=== PATIENT | male | born 1990 | race Caucasian/White ===

== ENCOUNTER 2018-07-01 09:31 | Emergency (ER) | payer SELFPAY ==
[~2018-07-01] VITALS: Ht 170.2 cm; Wt 63.5 kg
[2018-07-01] MEDS ORDERED: ONDANSETRON ODT8 MG PO (14:09)
== END 2018-07-01 14:50 | disposition home or self-care (01) ==
LOC: ED 09:31
DX: K52.9 Noninfective gastroenteritis and colitis, unspecified (principal); F17.200 Nicotine dependence, unspecified, uncomplicated; Z88.6 Allergy status to analgesic agent
CPT/HCPCS: 74177; 80053; 81001; 83690; 85025; 96361; 96374; 96375; 99284; J1170; J2405; J7030; Q9967

== ENCOUNTER 2019-06-25 20:56 | Emergency (ER) | payer SELFPAY ==
[~2019-06-25] VITALS: Ht 170.2 cm; Wt 68.0 kg
--- OUTSIDE RECORDS SUMMARY | ~2019-06-25 | XMS | Clinical Summary ---
Demographics + + + | Address | [address] | | | [place] [address] | + + + | Home Phone | | + + + | Preferred Language | Unknown | + + + | Marital Status | Single | + + + | Jehovah'S Witness Affiliation | Unknown | + + + | Race | Unknown | + + + | Ethnic Group | Unknown | + + + Author + + + | Author | [facility] | | | and [place] | + + + | Organization | [facility] | | | and [place] | + + + | Address | Unknown | + + + | Phone | Unavailable | + + + Support + + + + + | Name | Relationship | Address | Phone | + + + + + | Miriam Haynes | ECON | [address] | | | | | [place] [address] | | + + + + + | Fabio Haynes | ECON | [address] | | | | | [place] [address] | | + + + + + Care Team Providers + +------+ + | Care Cleaner Furniture Name | Role | Phone | + +------+ + | Delores Gunn MD | PCP | Unavailable | + +------+ + Allergies + + + + + + | Active Allergy | Reactions | Severity | Noted | Comments | | | | | Date | | + + + + + + | Nsaids | Swelling | High | 09/03/19 | | | | | | 13 | | + + + + + + Medications + + + +---------+------+------+-------+ | Medication | Sig | Dispensed | Refills | Star | End | Statu | | | | | | t | Date | s | | | | | | Date | | | + + + +---------+------+------+-------+ | | Take 1-2 tablets by | 16 | 0 | 07/0 | | Activ | | HYDROcodone-acetamin | mouth every 6 hours | tablet | | 20 | | e | | ophen (NORCO) 5-325 | as needed for Pain. | | | 17 | | | | mg per tablet | | | | | | | + + + +---------+------+------+-------+ | tamsulosin | Take 1 capsule by | 30 | 0 | 07/0 | | Activ | | (FLOMAX) 0.4 mg CAPS | mouth Daily. | capsule | | 1/20 | | e | | | | | | 17 | | | + + + +---------+------+------+-------+ | ondansetron | Take 1 tablet by | 12 | 0 | 07/0 | | Activ | | (ZOFRAN ODT) 4 mg | mouth every 8 hours | tablet | | 1/20 | | e | | disintegrating | as needed for up to | | | 17 | | | | tablet | 12 doses. | | | | | | + + + +---------+------+------+-------+ Active Problems No known active problems Immunizations + + + + | Name | Dates Previously Given | Next Due | + + + + | TDAP, (ADOL/ADULT) | 09/03/2012 | | + + + + Social History + [...] + +---------+ + | Alcohol Use | Drinks/We | oz/Week | Comments | | | ek | | | + + +---------+ + | Yes [...] recent travel history available. | + + Last Filed Vital Signs + + + + | Vital Sign | Reading | Time Taken | + + + + | Blood Pressure | 103/70 | 02/25/2017556 PDT | + + + + | Pulse | 80 | 02/25/2017556 PDT | + + + + | Temperature | 36.1 C (97 F) | 02/25/2017417 PDT | + + + + | Respiratory Rate | 20 | 02/25/2017417 PDT | + + + + | Oxygen Saturation | 92% | 02/25/2017 0557 PDT | + + + + | Inhaled Oxygen | - | - | | Concentration | | | + + + + | Weight | 63.5 kg (140 lb) | 02/04/20171003 PDT | + + + + | Height | 170.2 cm (5' 7") | 02/04/20171003 PDT | + + + + | Body Mass Index | 21.93 | 02/04/20171003 PDT | + + + + Plan of Treatment + + + + + | Health Maintenance | Due Date | Last Done | Comments | + + + + + | Vaccine: Influenza | | | | | (#1) | 9 | | | + + + + + | Vaccine: | | 09/28/2015, 09/03/2012 | | | Dtap/Tdap/Td (3 - | 6 | | | | Td) | | | | + + + + + Results Not on filefrom Last 3 Months Advance Directives Patient has advance care planning documents on file. For more information, please contact:[facility] [place] [address]
--- OUTSIDE RECORDS SUMMARY | ~2019-06-25 | XMS | Clinical Summary ---
Demographics + + + | Address | [address] | | | [place] [address] | + + + | Home Phone | | + + + | Preferred Language | Unknown | + + + | Marital Status | Single | + + + | Nondenominational Affiliation | Unknown | + + + | Race | Unknown | + + + | Ethnic Group | Unknown | + + + Author + + + | Author | [facility] | | | and [place] | + + + | Organization | [facility] | | | and [place] | + + + | Address | Unknown | + + + | Phone | Unavailable | + + + Support + + + + + | Name | Relationship | Address | Phone | + + + + + | Miriam Haynes | ECON | [address] | | | | | [place] [address] | | + + + + + | Fabio Haynes | ECON | [address] | | | | | [place] [address] | | + + + + + Care Team Providers + +------+ + | Care Agriculture Department Chair Name | Role | Phone | + [...] documents on file. For more information, please contact:[facility] [place] [address]
[~2019-06-25 20:56] MED LIST: ONDANSETRON ODT8 MG PO
[2019-06-25] MEDS ORDERED: FLOMAX0.4 MG PO (22:25)
[2019-06-25] MEDS ORDERED: NORCO 5-325 TA1 EACH PO (22:25)
[2019-06-25] MEDS ORDERED: PROMETHAZINE HC25 M1 PO (22:25)
== END 2019-06-25 22:37 | disposition home or self-care (01) ==
LOC: ED 20:56
DX: N23 Unspecified renal colic (principal); F17.200 Nicotine dependence, unspecified, uncomplicated; Z88.6 Allergy status to analgesic agent; Z87.442 Personal history of urinary calculi
CPT/HCPCS: 81001; 96372; 99284; J1170

== ENCOUNTER 2020-02-02 16:19 | Emergency (ER) | payer SELFPAY ==
[~2020-02-02] VITALS: Ht 170.2 cm; Wt 70.3 kg
--- OUTSIDE RECORDS SUMMARY | ~2020-02-02 | XMS | Encounter Summary ---
Demographics + + + | Address | [address] | | | [place] [address] | + + + | Home Phone | | + + + | Preferred Language | Unknown | + + + | Marital Status | Single | + + + | Baptism Affiliation | Unknown | + + + | Race | Unknown | + + + | Ethnic Group | Unknown | + + + Author + + + | Author | [facility] | | | and [place] | + + + | Organization | [facility] | | | and [place] | + + + | Address | Unknown | + + + | Phone | Unavailable | + + + Support + + + + + | Name | Relationship | Address | Phone | + + + + + | Miriam Dealmes | ECON | [address] | | | | | [place] [address] | | + + + + + | Fabio Haynes | ECON | [address] | | | | | [place] [address] | | + + + + + Care Team Providers + +------+ + | Care Wind Farm Engineer Name | Role | Phone | + +------+ + | Delores Gunn MD | PCP | | + +------+ + Reason for Visit + + + | Reason | Comments | + + + | Flank Pain | | + + + | Hematuria | | + + + Encounter Details +--------+ + + + + | Date | Type | Department | Care Team | Description | +--------+ + + + + | 02/25/ | Emergency | [facility] | Soto Rios, | Renal colic on right | | 2017 | | [facility] | MD [address] | side (Primary Dx) | | | | CENTER [address] | [facility] | | | | | [place] | [place] [address] | | | | | [address] | [phone] | | | | | [phone] | | | +--------+ + + + + Social History + + + +--------+------+ | Tobacco Use | Types | Packs/Day | Years | Date | | | | | Used | | + + + +--------+------+ | Current Some Day | Cigarettes | 1 | 3 | | | Smoker | | | | | + + + +--------+------+ + +------+---+---+ | Smokeless Tobacco: | Chew | | | | Current User | | | | + +------+---+---+ + + +---------+ + | Alcohol Use | Drinks/Week | oz/Week | Comments | + + +---------+ + | Yes | | | | + + +---------+ + + + + | Sex Assigned at | Date Recorded | | | | + + + | Not on file | | + + + + + + + | Job Start Date | Occupation | Industry | + + + + | Not on file | Not on file | Not on file | + + + + + + + + | Travel History | Travel Start | Travel End | + + + + + + | No recent travel history available. | + + documented as of this encounter Last Filed Vital Signs + + + + + | Vital Sign | Reading | Time Taken | Comments | + + + + + | Blood Pressure | 103/70 | 02/25/2017 5:57 AM | | | | | PDT | | + + + + + | Pulse | 80 | 02/25/2017 5:57 AM | | | | | PDT | | + + + + + | Temperature | 36.1 C (97 F) | 02/25/2017 4:18 AM | | | | | PDT | | + + + + + | Respiratory Rate | 20 | 02/25/2017 4:18 AM | | | | | PDT | | + + + + + | Oxygen Saturation | 92% | 02/25/2017 5:57 AM | | | | | PDT | | + + + + + | Inhaled Oxygen | - | - | | | Concentration | | | | + + + + + | Weight | - | - | | + + + + + | Height | - | - | | + + + + + | Body Mass Index | - | - | | + + + + + documented in this encounter Discharge Instructions Instructions Soto Rios MD - 02/25/2017Take the medicine as prescribed Stay well-hydrated Follow-up with your primary care doctor Follow-up with urology Return immediately if worse AttachmentsThe following attachments cannot be sent through Care Everywhere.KIDNEY STONE W/ COLIC (BHUTANESE)documented in this encounter Medications at Time of Discharge + + + +---------+ + + | Medication | Sig | Dispensed | Refills | Start | End Date | | | | | | Date | | + + + +---------+ + + | | Take 1-2 tablets by | 16 | 0 | 02/26/20 | | | HYDROcodone-acetamin | mouth every 6 hours | tablet | | 17 | | | ophen (NORCO) 5-325 | as needed for Pain. | | | | | | mg per tablet | | | | | | + + + +---------+ + + | ondansetron | Take 1 tablet by | 12 | 0 | 02/26/20 | | | (ZOFRAN ODT) 4 mg | mouth every 8 hours | tablet | | 17 | | | disintegrating | as needed for up to | | | | | | tablet | 12 doses. | | | | | + + + +---------+ + + | tamsulosin | Take 1 capsule by | 30 | 0 | 02/26/20 | | | (FLOMAX) 0.4 mg CAPS | mouth Daily. | capsule | | 17 | | + + + +---------+ + + documented as of this encounter Plan of Treatment + +------+--------+ + + | Name | Type | Priori | Associated Diagnoses | Date/Time | | | | ty | | | + +------+--------+ + + | ED INFORMATION | TAM | Routin | | 02/25/2017 4:18 AM | | EXCHANGE | | e | | PDT | + +------+--------+ + + documented as of this encounter Procedures + +--------+ + + + | Procedure Name | Priori | Date/Time | Associated Diagnosis | Comments | | | ty | | | | + +--------+ + + + | XR ABDOMEN AP | STAT | 02/25/2017 | | Results for this | | | | 6:00 AM | | procedure are in the | | | | PDT | | results section. | + +--------+ + + + | URINALYSIS WITH | STAT | 02/25/2017 | | Results for this | | MICROSCOPIC WITH | | 5:17 AM | | procedure are in the | | CULTURE IF INDICATED | | PDT | | results section. | + +--------+ + + + | ED INFORMATION | Routin | 02/25/2017 | | | | EXCHANGE | e | 4:18 AM | | | | | | PDT | | | + +--------+ + + + +---+--------+ | | | | | Proced | | | ure | | | Note - | | | Tonny, | | | Lab In | | | | | | Hlseve | | | n - | | | | | | 2016 | | | 4:19 | | | AM PDT | | | | | | Format | | | ting | | | of | | | this | | | note | | | might | | | be | | | differ | | | ent | | | from | | | the | | | origin | | | al.TONNY | | | E?NOTI | | | FICATI | | | ON?/ | | | | | | 7 | | | 04:15? | | | ANAYA, | | | | | | GERONIMO | | | ?MRN: | | | [id number] | | | [id number] | | | his | | | patien | | | t has | | | regist | | | ered | | | at the | | | | | | Provid | | | ence | | | [facility] | | l | | | Center | | | | | | Emerge | | | ncy | | | Depart | | | ment | | | For | | | more | | | inform | | | ation | | | visit: | | | | | | https: | | | //secu | | | re.[email or web address] | | | ecarep | | | [email or web address] | | | m/corey | | | ent/43 | | | [id number] | | | -eab5- | | | [phone] | | | 48c-75 | | | [id number] | | | [id number] | | | ED | | | Care | | | Guidel | | | inesTh | | | ere | | | are | | | curren | | | tly no | | | ED | | | Care | | | Guidel | | | meir | | | in | | | TAM | | | for | | | this | | | patien | | | t. | | | Please | | | check | | | your | | | facili | | | ty's | | | medica | | | l | | | record | | | s | | | system | | | .Recen | | | t | | | Emerge | | | ncy | | | Depart | | | ment | | | Visit | | | Summar | | | yAdmit | | | Date | | | Facili | | | ty | | | City | | | State | | | Type | | | Major | | | Type | | | Diagno | | | ses or | | | Chief | | | | | | Compla | | | int | | | [place] 1, | | | 2017 | | | Provid | | | ence | | | [facility] | | [place] | | | [place] | | | Emerge | | | ncy | | | Emerge | | | ncy | | | Flank | | | Pain | | | Bao | | | 10, | | | 2017 | | | Provid | | | ence | | | [facility] | [facility] | | | [place] | | | [place] | | | Emerge | | | ncy | | | Emerge | | | ncy | | | | | | Possib | | | le | | | Kidney | | | Stone | | | | | | Unspec | | | ified | | | renal | | | colic | | | [place] | | | 1, | | | 2017 | | | Provid | | | ence | | | [facility] | [facility] | | [place] | | | [place] | | | Emerge | | | ncy | | | Emerge | | | ncy | | | | | | Abdomi | | | nal | | | Pain | | | Left | | | lower | | | | | | quadra | | | nt | | | pain | | | May | | | 23, | | | 2017 | | | Provid | | | ence | | | [facility] | [facility] | | [place] | | | [place] | | | Emerge | | | ncy | | | Emerge | | | ncy | | | Flank | | | Pain | | | | | | Unspec | | | ified | | | renal | | | colic | | | E.D. | | | Visit | | | Count | | | (12 | | | mo.)Fa | | | cility | | | | | | Visits | | | Low | | | Acuity | | | | | | Provid | | | ence | | | St. | | | [facility] | | | Medica | | | l | | | Center | | | 4 0 | | | Total | | | 4 0 | | | Note: | | | Visits | | | | | | indica | | | te | | | total | | | known | | | visits | | | . | | | Medica | | | id Low | | | | | | Acuity | | | Dx | | | are | | | the | | | number | | | of | | | primar | | | y | | | diagno | | | ses on | | | the | | | Medica | | | id's | | | Low | | | Acuity | | | dx | | | list. | | | | | | Recent | | | | | | Inpati | | | ent | | | Visit | | | Summar | | | yNo | | | record | | | ed | | | inpati | | | ent | | | visits | | | . | | | [place] | | | gton | | | PDMP | | | Report | | | PDMP | | | report | | | does | | | not | | | meet | | | criter | | | ia.Car | | | e | | | Provid | | | ersEDI | | | E has | | | no | | | care | | | provid | | | ers on | | | | | | record | | | at | | | this | | | time. | | | Criter | | | ia met | | | 4 | | | visits | | | in | | | 60Know | | | n | | | Aliase | | | sNo | | | known | | | aliase | | | s. The | | | above | | | | | | inform | | | ation | | | is | | | provid | | | ed for | | | the | | | sole | | | purpos | | | e of | | | patien | | | t | | | treatm | | | ent. | | | Use of | | | this | | | inform | | | ation | | | beyond | | | the | | | terms | | | of | | | Data | | | Sharin | | | g | | | Memora | | | ndum | | | of | | | Unders | | | tandin | | | g and | | | Licens | | | e | | | Agreem | | | ent is | | | | | | prohib | | | ited. | | | In | | | certai | | | n | | | cases | | | not | | | all | | | visits | | | may | | | be | | | repres | | | ented. | | | | | | Consul | | | t the | | | aforem | | | ention | | | ed | | | facili | | | ties | | | for | | | additi | | | onal | | | inform | | | ation. | | | ? | | | 2017 | | | Collec | | | tive | | | Medica | | | l | | | Techno | | | logies | | | , [employer] | | | - | | | [place] | | | [place] | | | [place], | | | [place] - | | | [email or web address] | | | ollect | | | ivemed | | | icalte | | | [email or web address] | | | | +---+--------+ documented in this encounter Results XR Abdomen AP (02/25/2017 6:00 AM PDT) + + | Specimen | + + | | + + + + + | Narrative | Performed At | + + + | EXAM:XR ABDOMEN 1 VW CLINICAL HISTORY: right flank pain | [facility] | | COMPARISON: CT abdomen and pelvis dated February 04, 2017. FINDINGS: | | | The calcifications previously seen in the distal right ureter are no | | | longer visible. There is a phlebolith in the pelvis, on the right | | | side. No additional radiopaque nephrolithiasis. No dilated loops | | | of bowel. Scattered stool and gas. The osseous structures are | | | unremarkable. IMPRESSION - Interval passage of the distal | | | ureterolith on the right. Dictated and Signed by: Noman Mcmillan, | | | Electronically signed: 02/25/2017 11:49 AM | | + + + + + | Procedure Note | + + | Tonny, Rad Results In - 02/25/2017 11:52 AM PDT EXAM:XR ABDOMEN 1 VW | | | | CLINICAL HISTORY: right flank pain | | | | COMPARISON: CT abdomen and pelvis dated February 04, 2017. | | | | FINDINGS: The calcifications previously seen in the distal right ureter are no | | longer visible. There is a phlebolith in the pelvis, on the right side. No | | additional radiopaque nephrolithiasis. No dilated loops of bowel. Scattered | | stool and gas. The osseous structures are unremarkable. | | | | IMPRESSION - | | | | Interval passage of the distal ureterolith on the right. | | | | Dictated and Signed by: Noman Mcmillan MD | | Electronically signed: 02/25/2017 11:49 AM | + + + +---------+ + + | Performing | Address | City/State/Zipcode | Phone Number | | Organization | | | | + +---------+ + + | [facility] | | | | + +---------+ + + Urinalysis with Microscopic with Culture if Indicated (02/25/2017 5:17 AM PDT) + + + + + + | Component | Value | Ref Range | Performed | Pathologist | | | | | At | Signature | + + + + + + | Color, | Straw | Light Yellow, | [facility] | | | Urine | | Yellow, Straw | [facility] | | | | | | [facility] | | | | | | C[facility] - | | | | | | LABORATORY | | + + + + + + | Clarity | Clear | Clear | [facility] | | | | | | [facility] | | | | | | MED[facility] | | | | | | CENTER - | | | | | | LABORATORY | | + + + + + + | pH, Urine | 6.0 | 5.0 - 8.0 | [facility] | | | | | | [facility] | | | | | | MED[facility] | | | | | | CENTER - | | | | | | LABORATORY | | + + + + + + | Specific | 1.003 | 1.001 - 1.030 | [facility] | | | [place], | | | [facility] | | | Urine | | | MEDICAL | | | | | | CENTER - | | | | | | LABORATORY | | + + + + + + | Protein, | Negative | Negative | [facility] | | | Urine | | | [facility] | | | | | | MEDICAL | | | | | | CENTER - | | | | | | LABORATORY | | + + + + + + | Blood, | Moderate (A) | Negative | [facility] | | | Urine | | | [facility] | | | | | | MEDICAL | | | | | | CENTER - | | | | | | LABORATORY | | + + + + + + | Glucose, | Negative | Negative | [facility] | | | Urine | | | [facility] | | | | | | MEDICAL | | | | | | CENTER - | | | | | | LABORATORY | | + + + + + + | Ketones, | Negative | Negative | [facility] | | | Urine | | | [facility] | | | | | | MEDICAL | | | | | | CENTER - | | | | | | LABORATORY | | + + + + + + | Bilirubin, | Negative | Negative | [facility] | | | Urine | | | [facility] | | | | | | MEDICAL | | | | | | CENTER - | | | | | | LABORATORY | | + + + + + + | Nitrite, | Negative | Negative | [facility] | | | Urine | | | [facility] | | | | | | MEDICAL | | | | | | CENTER - | | | | | | LABORATORY | | + + + + + + | Leukocyte | Negative | Negative | [facility] | | | Esterase, | | | [facility] | | | Urine | | | MEDICAL | | | | | | CENTER - | | | | | | LABORATORY | | + + + + + + | Urobilinoge | Negative | 0.2 mg/dL, 1.0 | [facility] | | | n, Urine | | mg/dL, Negative | [facility] | | | | | | MEDICAL | | | | | | CENTER - | | | | | | LABORATORY | | + + + + + + | White Blood | 0-2 | 0 - 2 /HPF | [facility] | | | Cells, | | | [facility] | | | Urine | | | MEDICAL | | | | | | CENTER - | | | | | | LABORATORY | | + + + + + + | Red Blood | 0-2 | 0 - 2 /HPF | [facility] | | | Cells, | | | [facility] | | | Urine | | | MEDICAL | | | | | | CENTER - | | | | | | LABORATORY | | + + + + + + | Squamous | 0-2 | 0 - 2 /LPF | [facility] | | | Epithelial | | | [facility] | | | Cells, | | | MEDICAL | | | Urine | | | CENTER - | | | | | | LABORATORY | | + + + + + + | Bacteria, | Negative | Negative /HPF | [facility] | | | Urine | | | [facility] | | | | | | MEDICAL | | | | | | CENTER - | | | | | | LABORATORY | | + + + + + + | Urine | Urine Culture Not | | [facility] | | | Comment | Indicated | | [facility] | | | | | | MEDICAL | | | | | | CENTER - | | | | | | LABORATORY | | + + + + + + + + | Specimen | + + | Urine - Urine | | specimen obtained by | | clean catch | | procedure (specimen) | + + + + + + + | Performing | Address | City/State/Zipcode | Phone Number | | Organization | | | | + + + + + | [facility] | [address] | [place] | [phone] | | [facility] | | [address] | | | - LABORATORY | | | | + + + + + documented in this encounter Visit Diagnoses + + | Diagnosis | + + | Renal colic on right side - Primary Renal colic | + + documented in this encounter Administered Medications + + + + +------+------+ | Medication Order | MAR | Action | Dose | Rate | Site | | | Action | Date | | | | + + + + +------+------+ | HYDROcodone-acetaminophen | Dispense | 02/26/20 | 1 tablet | | | | (NORCO) 5-325 mg per tablet (ER | to Home | 17 6:12 | | | | | Prepack) 1-2 tablet 1-2 tablet, | | AM PDT | | | | | Oral, ONCE, 02/25/17 at 0610, | | | | | | | For 1 dose, 1-2 tablets every 6 | | | | | | | hours prn pain, | | | | | | + + + + +------+------+ +---+---+ | | | +---+---+ + +-------+ +------+---+---+ | HYDROmorphone (DILAUDID) 1 | Given | 02/26/20 | 1 mg | | | | mg/mL injection 1 mg 1 mg, | | 17 4:49 | | | | | Intravenous, ONCE, 02/25/17 at | | AM PDT | | | | | 0440, For 1 dose | | | | | | + +-------+ +------+---+---+ +---+---+ | | | +---+---+ + +-------+ +------+---+---+ | HYDROmorphone (DILAUDID) 1 | Given | 02/26/20 | 1 mg | | | | mg/mL injection 1 mg 1 mg, | | 17 5:29 | | | | | Intravenous, ONCE, 02/25/17 at | | AM PDT | | | | | 0525, For 1 dose | | | | | | + +-------+ +------+---+---+ +---+---+ | | | +---+---+ + +-------+ +------+---+---+ | ondansetron (ZOFRAN) injection | Given | 02/26/20 | 4 mg | | | | 4 mg 4 mg, Intravenous, ONCE, | | 17 4:49 | | | | | 02/25/17 at 0440, For 1 dose | | AM PDT | | | | + +-------+ +------+---+---+ +---+---+ | | | +---+---+ + +---------+ +---------+-------+---+ | sodium chloride 0.9% (NS) bolus | New Bag | 02/26/20 | 500 mLs | 500 | | | 500 mL 500 mL, Intravenous, | | 17 4:49 | | mL/hr | | | Administer over 1 Hours, ONCE, | | AM PDT | | | | | 02/25/17 at 0440, For 1 dose | | | | | | + +---------+ +---------+-------+---+ +---+---+ | | | +---+---+ documented in this encounter"
--- OUTSIDE RECORDS SUMMARY | ~2020-02-02 | XMS | Encounter Summary ---
Demographics + + + | Address | [address] | | | [place] [address] | + + + | Home Phone | | + + + | Preferred Language | Unknown | + + + | Marital Status | Single | + + + | Orthodox Affiliation | Unknown | + + + | Race | Unknown | + + + | Ethnic Group | Unknown | + + + Author + + + | Author | [facility] | | | and [place] | + + + | Organization | [facility] | | | and [place] | + + + | Address | Unknown | + + + | Phone | Unavailable | + + + Support + + + + + | Name | Relationship | Address | Phone | + + + + + | Miriam Dealmes | ECON | [address] | | | | | [place] [address] | | + + + + + | Fabio Haynes | ECON | [address] | | | | | [place] [address] | | + + + + + Care Team Providers + +------+ + | Care Sports Psychologist Name | Role | Phone | + +------+ + | No, Physician | PCP | Unavailable | + +------+ + Encounter Details +--------+ + + + + | Date | Type | Department | Care Team | Description | +--------+ + + + + | 09/25/ | Hospital | [facility] | Kevin Edison | | | 2012 - | Encounter | [facility] | J, DO [address] | | | | | [address] [place] | [place], [place] | | | 09/27/ | | [place] [address] | [address] | | | 2012 | | [phone] | [phone] | | | | | | | | +--------+ + + + + Social History + + + +--------+------+ | Tobacco Use | Types | Packs/Day | Years | Date | | | | | Used | | + + + +--------+------+ | Current Some Day | Cigarettes | 1 | 3 | | | Smoker | | | | | + + + +--------+------+ + +---+---+---+ | Smokeless Tobacco: | | | | | Current User | | | | + +---+---+---+ + + +---------+ + | Alcohol Use | Drinks/Week | oz/Week | Comments | + + +---------+ + | Not Asked | | | | + + +---------+ [...] as of this encounter Plan of Treatment Not on filedocumented as of this encounter Visit Diagnoses Not on filedocumented in this encounter"
--- OUTSIDE RECORDS SUMMARY | ~2020-02-02 | XMS | Encounter Summary ---
Demographics + + + | Address | [address] | | | [place] [address] | + + + | Home Phone | | + + + | Preferred Language | Unknown | + + + | Marital Status | Single | + + + | Hinduism Affiliation | Unknown | + + + | Race | Unknown | + + + | Ethnic Group | Unknown | + + + Author + + + | Author | [facility] | | | and [place] | + + + | Organization | [facility] | | | and [place] | + + + | Address | Unknown | + + + | Phone | Unavailable | + + + Support + + + + + | Name | Relationship | Address | Phone | + + + + + | Miriam Dealmes | ECON | [address] | | | | | [place] [address] | | + + + + + | Fabio Haynes | [place] | [address] | | | | | [place] [address] | | + + + + + Care Team Providers + +------+ + | Care Care Advocate Name | Role | Phone | + +------+ + | Delores Gunn MD | PCP | | + +------+ + Reason for Visit + + + | Reason | Comments | + + + | Abdominal Pain | | + + + Encounter Details +--------+ + + + + | Date | Type | Department | Care Team | Description | +--------+ + + + + | 01/26/ | Emergency | [facility] | [place] | Left lower quadrant | | 2017 | | [facility] | MD [address] | pain (Primary Dx) | | | | CENTER [address] | [facility] | | | | | [place] | [place] [address] | | | | | [address] | [phone] | | | | | [phone] | | | +--------+ + + + [...] + + + | Blood Pressure | 117/77 | 01/26/2017 7:57 PM | | | | | PDT | | + + + + + | Pulse | 72 | 01/26/2017 7:57 PM | | | | | PDT | | + + + + + | Temperature | 36.6 C (97.8 F) | 01/26/2017 5:24 PM | | | | | PDT | | + + + + + | Respiratory Rate | 22 | 01/26/2017 5:24 PM | | | | | PDT | | + + + + + | Oxygen Saturation | 95% | 01/26/2017 7:57 PM | | | | | PDT | | + + + + + | Inhaled Oxygen | - | - | | | Concentration | | | | + + + + + | Weight | 63.5 kg (140 lb) | 01/26/2017 5:24 PM | | | | | PDT | | + + + + + | Height | 170.2 cm (5' 7") | 01/26/2017 5:24 PM | | | | | PDT | | + + + + + | Body Mass Index | 21.93 | 01/26/2017 5:24 PM | | | | | PDT | | + + + + + documented in this encounter Discharge Instructions Louise Allison RN - 01/26/2017Take hydrocodone if needed for pain Drink plenty of water Return here if worsening or no better in the next 12-24 hours documented in this encounter Medications at Time of Discharge + + + +---------+ + + | Medication | Sig | Dispensed | Refills | Start | End Date | | | | | | Date | | + + + +---------+ + + | | Take 1-2 tablets by | 20 | 0 | 01/27/20 | | | HYDROcodone-acetamin | mouth every 4 hours | tablet | | 17 | 7 | | ophen (NORCO) 5-325 | as needed for Pain. | | | | | | mg per tablet | | | | | | + + + +---------+ + + documented as of this encounter Plan of Treatment Not on filedocumented as of this encounter Procedures + +--------+ + + + | Procedure Name | Priori | Date/Time | Associated Diagnosis | Comments | | | ty | | | | + +--------+ + + + | CT RENAL STONE WO | STAT | 01/26/2017 | | Results for this | | CONTRAST | | 6:56 PM | | procedure are in the | | | | PDT | | results section. | + +--------+ + + + | CBC WITH | STAT | 01/26/2017 | | Results for this | | DIFFERENTIAL | | 6:43 PM | | procedure are in the | | | | PDT | | results section. | + +--------+ + + + | LIPASE | STAT | 01/26/2017 | | Results for this | | | | 6:43 PM | | procedure are in the | | | | PDT | | results section. | + +--------+ + + + | COMPREHENSIVE | STAT | 01/26/2017 | | Results for this | | METABOLIC PANEL | | 6:43 PM | | procedure are in the | | | | PDT | | results section. | + +--------+ + + + | POCT URINALYSIS, | STAT | 01/26/2017 | | Results for this | | AUTO WITH CONF | | 6:02 PM | | procedure are in the | | | | PDT | | results section. | + +--------+ + + + documented in this encounter Results CT Renal Stone Wo Contrast (01/26/2017 6:56 PM PDT) + + | Specimen | + + | | + + + + + | Narrative | Performed At | + + + | CT RENAL STONE WO CONTRAST 01/26/2017 6:53 PM HISTORY: ABDOMINAL | [facility] | | PAIN. COMPARISON: None. PROTOCOL: Axial images of the abdomen | | | and pelvis were obtained. Coronal and sagittal reformations were | | | acquired. FINDINGS: Chest base is normal. Imaged liver | | | demonstrates normal parenchyma. The gallbladder is normal. Biliary | | | ducts are unremarkable. Imaged spleen is unremarkable. The | | | pancreas demonstrates normal parenchyma and a normal pancreatic duct. | | | Adrenal glands are normal. The bilateral kidneys and visualized | | | ureters are normal. The distal ureters are not well seen. | | | Stomach, small bowel, and terminal ileum are normal. The appendix is | | | not definitively identified. Colon is unremarkable. Aorta is | | | nonaneurysmal. The iliac arteries are normal. There is no significant | | | abnormality in the portal veins, mesenteric veins, or systemic veins. | | | There are 3 calcifications in the right pelvis that have the | | | appearance of phleboliths. No enlarged lymph nodes are visualized | | | within the omentum or retroperitoneum. There is no evidence for | | | ascites or free air. Bladder is normal. Prostate and seminal | | | vesicles are normal. Body wall soft tissue structures are normal. | | | There are no acute osseous abnormalities. IMPRESSION - No acute | | | findings. There are 3 calcifications in the right pelvis that have the | | | appearance of phleboliths. Although the right distal ureter is not | | | well seen, these are unlikely to be obstructing stones as there is no | | | significant right hydronephrosis. Dictated and Signed by: Satnam | | | MD Isidro Electronically signed: 01/26/2017 7:35 PM | | + + + + + | Procedure Note | + + | Lupillo, Rad Results In - 01/26/2017 7:[address] RENAL STONE WO CONTRAST 01/26/2017 | | 6:53 PMHISTORY: ABDOMINAL PAIN.COMPARISON: None.PROTOCOL: Axial images of the abdomen | | and pelvis were obtained. Coronal andsagittal reformations were acquired.FINDINGS:Chest | | base is normal.Imaged liver demonstrates normal parenchyma. The gallbladder is normal. | | Biliaryducts are unremarkable.Imaged spleen is unremarkable. The pancreas demonstrates | | normal parenchyma and anormal pancreatic duct. Adrenal glands are normal.The bilateral | | kidneys and visualized ureters are normal. The distal ureters arenot well seen.Stomach, | | small bowel, and terminal ileum are normal. The appendix is notdefinitively identified. | | Colon is unremarkable.Aorta is nonaneurysmal. The iliac arteries are normal. There is no | | significantabnormality in the portal veins, mesenteric veins, or systemic veins. There | | are3 calcifications in the right pelvis that have the appearance of phleboliths.No | | enlarged lymph nodes are visualized within the omentum or retroperitoneum.There is no | | evidence for ascites or free air.Bladder is normal.Prostate and seminal vesicles are | | normal.Body wall soft tissue structures are normal. There are no acute | | osseousabnormalities.IMPRESSION -No acute findings. There are 3 calcifications in the | | right pelvis that have theappearance of phleboliths. Although the right distal ureter is | | not well seen,these are unlikely to be obstructing stones as there is no significant | | righthydronephrosis.Dictated and Signed by: Satnam Felix MD Electronically signed: | | 01/26/2017 7:35 PM | |not well seen. | | | |Stomach, small bowel, and terminal ileum are normal. The appendix is not | |definitively identified. Colon is unremarkable. | | | |Aorta is nonaneurysmal. The iliac arteries are normal. There is no significant | |abnormality in the portal veins, mesenteric veins, or systemic veins. There are | |3 calcifications in the right pelvis that have the appearance of phleboliths. | | | |No enlarged lymph nodes are visualized within the omentum or retroperitoneum. | | | |There is no evidence for ascites or free air. | | | |Bladder is normal. | | | |Prostate and seminal vesicles are normal. | | | |Body wall soft tissue structures are normal. There are no acute osseous | |abnormalities. | | | |IMPRESSION - | |No acute findings. There are 3 calcifications in the right pelvis that have the | |appearance of phleboliths. Although the right distal ureter is not well seen, | |these are unlikely to be obstructing stones as there is no significant right | |hydronephrosis. | | | |Dictated and Signed by: Satnam Felix MD | | Electronically signed: 01/26/2017 7:35 PM | + + + +---------+ + + | Performing | Address | City/State/Zipcode | Phone Number | | Organization | | | | + +---------+ + + | [facility] | | | | + +---------+ + + Lipase (01/26/2017 6:43 PM PDT) + +-------+ + + + | Component | Value | Ref Range | Performed | Pathologist | | | | | At | Signature | + +-------+ + + + | Lipase | 19 | 0 - 60 U/L | [facility] | | | | | | [facility] | | | | | | [facility] | | | | | | C[facility] - | | | | | | LABORATORY | | + +-------+ + + + + + | Specimen | + + | Blood | + + + + + + + | Performing | Address | City/State/Zipcode | Phone Number | | Organization | | | | + + + + + | [facility] | [address] | [place] | [phone] | | [facility] | | [address] | | | - LABORATORY | | | | + + + + + Comprehensive Metabolic Panel (01/26/2017 6:43 PM PDT) + + + + + + | Component | Value | Ref Range | Performed | Pathologist | | | | | At | Signature | + + + + + + | Na | 141 | 136 - 149 | [facility] | | | | | mmol/L | [facility] | | | | | | MEDICAL | | | | | | CENTER - | | | | | | LABORATORY | | + + + + + + | K | 3.8 | 3.5 - 5.1 | [facility] | | | | | mmol/L | [facility] | | | | | | MEDICAL | | | | | | CENTER - | | | | | | LABORATORY | | + + + + + + | Cl | 102 | 98 - 109 mmol/L | [facility] | | | | | | [facility] | | | | | | MEDICAL | | | | | | CENTER - | | | | | | LABORATORY | | + + + + + + | CO2 | 28 | 24 - 31 mmol/L | [facility] | | | | | | [facility] | | | | | | [facility] | | | | | | CENTER - | | | | | | LABORATORY | | + + + + + + | Anion Gap | 11 | 3 - 16 mmol/L | [facility] | | | | | | [facility] | | | | | | MEDICAL | | | | | | CENTER - | | | | | | LABORATORY | | + + + + + + | Glucose | 136 (H) | 70 - 109 mg/dL | [facility] | | | | | | [facility] | | | | | | [facility] | | | | | | CENTER - | | | | | | LABORATORY | | + + + + + + | BUN | 8 | 7 - 18 mg/dL | [facility] | | | | | | [facility] | | | | | | [facility] | | | | | | CENTER - | | | | | | LABORATORY | | + + + + + + | Creatinine | 0.92 | 0.60 - 1.30 | [facility] | | | | | mg/dL | [facility] | | | | | | MEDICAL | | | | | | CENTER - | | | | | | LABORATORY | | + + + + + + | eGFR if not | >60Comment: GLOMERULAR | >=60 | [facility] | | | | FILTRATION | mL/min/1.73m2 | [facility] | | | [place] | RATE,ESTIMATED | | MEDICAL | | | | mL/min/1.67w6Mpjn than | | CENTER - | | | | 60 Chronic kidney | | LABORATORY | | | | disease,if found over a | | | | | | 3-month period.Less than | | | | | | 15 Kidney failureFor | | | | | | | | | | | | Americans,multiply the | | | | | | calculated GFR by 1.21. | | | | | | | | | | + + + + + + | Calcium | 9.8 | 8.3 - 10.5 | [facility] | | | | | mg/dL | [facility] | | | | | | MEDICAL | | | | | | CENTER - | | | | | | LABORATORY | | + + + + + + | Albumin | 4.5 | 3.2 - 5.0 g/dL | [facility] | | | | | | [facility] | | | | | | MEDICAL | | | | | | CENTER - | | | | | | LABORATORY | | + + + + + + | Bilirubin | 1.1 | 0.1 - 1.5 mg/dL | [facility] | | | Total | | | [facility] | | | | | | MEDICAL | | | | | | CENTER - | | | | | | LABORATORY | | + + + + + + | Total | 7.4 | 6.0 - 7.8 g/dL | [facility] | | | Protein | | | [facility] | | | | | | MEDICAL | | | | | | CENTER - | | | | | | LABORATORY | | + + + + + + | AST | 33 | 10 - 42 U/L | [facility] | | | | | | [facility] | | | | | | MEDICAL | | | | | | CENTER - | | | | | | LABORATORY | | + + + + + + | ALT | 63 (H) | 6 - 45 U/L | [facility] | | | | | | [facility] | | | | | | MEDICAL | | | | | | CENTER - | | | | | | LABORATORY | | + + + + + + | Alkaline | 76 | 40 - 110 U/L | [facility] | | | Phosphatase | | | [facility] | | | | | | MEDICAL | | | | | | CENTER - | | | | | | LABORATORY | | + + + + + + | Globulin | 2.9 | 2.1 - 3.8 g/dL | [facility] | | | | | | [facility] | | | | | | MEDICAL | | | | | | CENTER - | | | | | | LABORATORY | | + + + + + + | Albumin/Kyra | 1.6 | 0.8 - 2.0 | [facility] | | | bulin Ratio | | | [facility] | | | | | | MEDICAL | | | | | | CENTER - | | | | | | LABORATORY | | + + + + + + | BUN/Creatin | 8.7 | | [facility] | | | ine Ratio | | | [facility] | | | | | | MEDICAL | | | | | | CENTER - | | | | | | LABORATORY | | + + + + + + + + | Specimen | + + | Blood | + + + + + + + | Performing | Address | City/State/Zipcode | Phone Number | | Organization | | | | + + + + + | [facility] | [address] | [place] | [phone] | | [facility] | | [address] | | | - LABORATORY | | | | + + + + + CBC with Differential (01/26/2017 6:43 PM PDT) + + + + + + | Component | Value | Ref Range | Performed | Pathologist | | | | | At | Signature | + + + + + + | WBC | 17.7 (H) | 4.0 - 11.0 K/uL | [facility] | | | | | | [facility] | | | | | | [facility] | | | | | | CENTER - | | | | | | LABORATORY | | + + + + + + | RBC | 5.47 | 4.30 - 5.70 | [facility] | | | | | M/uL | [facility] | | | | | | MEDICAL | | | | | | CENTER - | | | | | | LABORATORY | | + + + + + + | Hemoglobin | 16.9 | 13.5 - 18.0 | [facility] | | | | | g/dL | [facility] | | | | | | MEDICAL | | | | | | CENTER - | | | | | | LABORATORY | | + + + + + + | Hematocrit | 48.1 | 40.0 - 51.0 % | [facility] | | | | | | [facility] | | | | | | MEDICAL | | | | | | CENTER - | | | | | | LABORATORY | | + + + + + + | MCV | 88.1 | 83.0 - 101.0 fL | [facility] | | | | | | [facility] | | | | | | MEDICAL | | | | | | CENTER - | | | | | | LABORATORY | | + + + + + + | MCH | 30.9 | 28.0 - 35.0 pg | [facility] | | | | | | [facility] | | | | | | [facility]ICAL | | | | | | CENTER - | | | | | | LABORATORY | | + + + + + + | MCHC | 35.1 | 32.0 - 36.0 | [facility] | | | | | g/dL | [facility] | | | | | | MEDICAL | | | | | | CENTER - | | | | | | LABORATORY | | + + + + + + | RDW-CV | 12.1 | <15.0 % | [facility] | | | | | | [facility] | | | | | | MEDICAL | | | | | | CENTER - | | | | | | LABORATORY | | + + + + + + | Platelet | 274 | 140 - 440 K/uL | [facility] | | | Count | | | [facility] | | | | | | MEDICAL | | | | | | CENTER - | | | | | | LABORATORY | | + + + + + + | MPV | 7.5 | fL | [facility] | | | | | | [facility] | | | | | | MEDICAL | | | | | | CENTER - | | | | | | LABORATORY | | + + + + + + | % | 81.2 | 45.0 - 82.0 % | [facility] | | | Neutrophils | | | [facility] | | | | | | MEDICAL | | | | | | CENTER - | | | | | | LABORATORY | | + + + + + + | % | 8.9 (L) | 20.0 - 45.0 % | [facility] | | | Lymphocytes | | | [facility] | | | | | | MEDICAL | | | | | | CENTER - | | | | | | LABORATORY | | + + + + + + | % Monocytes | 9.0 | 4.0 - 12.0 % | [facility] | | | | | | [facility] | | | | | | MEDICAL | | | | | | CENTER - | | | | | | LABORATORY | | + + + + + + | % | 0.7 | 0.0 - 5.0 % | [facility] | | | Eosinophils | | | [facility] | | | | | | MEDICAL | | | | | | CENTER - | | | | | | LABORATORY | | + + + + + + | % Basophils | 0.2 | 0.0 - 1.0 % | [facility] | | | | | | [facility] | | | | | | MEDICAL | | | | | | CENTER - | | | | | | LABORATORY | | + + + + + + | Absolute | 14.40 (H) | 1.80 - 8.50 | [facility] | | | Neutrophils | | K/uL | [facility] | | | | | | MEDICAL | | | | | | CENTER - | | | | | | LABORATORY | | + + + + + + | Absolute | 1.60 | 0.60 - 3.20 | [facility] | | | Lymphocytes | | K/uL | [facility] | | | | | | MEDICAL | | | | | | CENTER - | | | | | | LABORATORY | | + + + + + + | Absolute | 1.60 (H) | 0.00 - 1.00 | [facility] | | | Monocytes | | K/uL | [facility] | | | | | | MEDICAL | | | | | | CENTER - | | | | | | LABORATORY | | + + + + + + | Absolute | 0.10 | 0.00 - 0.40 | [facility] | | | Eosinophils | | K/uL | [facility] | | | | | | MEDICAL | | | | | | CENTER - | | | | | | LABORATORY | | + + + + + + | Absolute | 0.00 | 0.00 - 0.10 | [facility] | | | Basophils | | K/uL | [facility] | | | | | | MEDICAL | | | | | | CENTER - | | | | | | LABORATORY | | + + + + + + + + | Specimen | + + | Blood | + + + + + + + | Performing | Address | City/State/Zipcode | Phone Number | | Organization | | | | + + + + + | [facility] | [address] | [place] | [phone] | | [facility] | | [address] | | | - LABORATORY | | | | + + + + + POCT Urinalysis Dipstick Automated (01/26/2017 6:02 PM PDT) + + + + + + | Component | Value | Ref Range | Performed | Pathologist | | | | | At | Signature | + + + + + + | Color, UA, | Nellie (A) | Yellow, Light | | | | POC | | Yellow | | | + + + + + + | Clarity, | Clear | | | | | UA, POC | | | | | + + + + + + | Glucose, | Negative | Negative | | | | UA, POC | | | | | + + + + + + | Bilirubin, | 1+ (A) | Negative | | | | UA, POC | | | | | + + + + + + | Ketones, | 1+ (A) | Negative, 100 | | | | UA, POC | | mg/dL | | | + + + + + + | Specific | 1.020 | 1.001 - 1.030 | | | | [place], | | | | | | UA, POC | | | | | + + + + + + | Blood, UA, | Negative | Negative | | | | POC | | | | | + + + + + + | pH, UA, POC | 6.5 | 5.0, 6.0, 7.0, | | | | | | 8.0, 5.5, 6.5, | | | | | | 7.5 | | | + + + + + + | Protein, | Negative | Negative | | | | UA, POC | | | | | + + + + + + | Urobilinoge | 4.0 E.U./dL (A) | 0.2, Negative, | | | | n, UA, POC | | Normal, < 0.2 | | | | | | mg/dL, 1 mg/dL, | | | | | | < 0.2 E.U./dl, | | | | | | 1.0 E.U./dL, | | | | | | 0.2 mg/dL | | | + + + + + + | Nitrite, | Negative | Negative | | | | UA, POC | | | | | + + + + + + | Leukocyte | Negative | Negative | | | | Esterase, | | | | | | UA, POC | | | | | + + + + + + | Reducing | | | | | | Substances, | | | | | | Urine | | | | | + + + + + + | Bilirubin | | Negative | | | | Confirmatio | | | | | | n by | | | | | | Ictotest, | | | | | | Urine | | | | | + + + + + + | Remark | | | | | + + + + + + + + | Specimen | + + | Urine | + + documented in this encounter Visit Diagnoses + + | Diagnosis | + + | Left lower quadrant pain - Primary Abdominal pain, left lower quadrant | + + documented in this encounter Administered Medications + +--------+ +--------+------+------+ | Medication Order | MAR | Action | Dose | Rate | Site | | | Action | Date | | | | + +--------+ +--------+------+------+ | HYDROmorphone (DILAUDID) 1 | Given | 01/27/20 | 0.5 mg | | | | mg/mL injection 0.5 mg 0.5 mg, | | 17 7:00 | | | | | Intravenous, EVERY 15 MIN PRN, | | PM PDT | | | | | Pain, Starting Mon01/26/17 at | | | | | | | 1840, For 5 doses | | | | | | + +--------+ +--------+------+------+ +---+---+ | | | +---+---+ + +-------+ +------+---+---+ | HYDROmorphone (DILAUDID) 1 | Given | 01/27/20 | 1 mg | | | | mg/mL injection 1 mg 1 mg, | | 17 7:21 | | | | | Intravenous, ONCE, Mon01/26/17 at | | PM PDT | | | | | 1840, For 1 dose | | | | | | + +-------+ +------+---+---+ +---+---+ | | | +---+---+ + +---------+ +--------+-------+---+ | sodium chloride 0.9% (NS) bolus | New Bag | 01/27/20 | 1,000 | 2000 | | | 1,000 mL 1,000 mL, Intravenous, | | 17 7:00 | mLs | mL/hr | | | Administer over 30 Minutes, | | PM PDT | | | | | ONCE, [facility] 01/26/17 at 1835, For 1 | | | | | | | dose | | | | | | + +---------+ +--------+-------+---+ +---+---+ | | | +---+---+ documented in this encounter
--- OUTSIDE RECORDS SUMMARY | ~2020-02-02 | XMS | Encounter Summary ---
Demographics + + + | Address | [address] | | | [place] [address] | + + + | Home Phone | | + + + | Preferred Language | Unknown | + + + | Marital Status | Single | + + + | Episcopal Affiliation | Unknown | + + + | Race | Unknown | + + + | Ethnic Group | Unknown | + + + Author + + + | Author | [facility] | | | and [place] | + + + | Organization | [facility] | | | and [place] | + + + | Address | Unknown | + + + | Phone | Unavailable | + + + Support + + + + + | Name | Relationship | Address | Phone | + + + + + | Miriam Dealmes | ECON | [address] | | | | | [place] [address] | | + + + + + | Fabio Haynes | ECON | [address] | | | | | [place] [address] | | + + + + + Care Team Providers + +------+ + | Care Reed Dipper Name | Role | Phone | + [...] + + | 02/25/ | Emergency | [facility] | [place], | Renal colic on right | | 2017 | | [facility] | MD [address] | side (Primary Dx) | | | | CENTER [address] | [facility] | | | | | [place] | [place] [address] | | | | | [address] | [phone] | | | | | [phone] | | | +--------+ + + + [...] sent through Care Everywhere.KIDNEY STONE W/ COLIC ([place])documented in this encounter Medications at Time of [...] | | | ?MRN: | | | [id number] | | | [id number] | | | his | | | [...] | | | ent/43 | | | [id number] | | | -[id number] | | | [...] - 1.030 | [facility] | | | [place], | | | [facility] | | [...] [address] | [place] | [phone] | | [facility] | | [address] | | | - LABORATORY | | [...]
--- OUTSIDE RECORDS SUMMARY | ~2020-02-02 | XMS | Encounter Summary ---
Demographics + + + | Address | [address] | | | [place] [address] | + + + | Home Phone | | + + + | Preferred Language | Unknown | + + + | Marital Status | Single | + + + | Cheondoism Affiliation | Unknown | + + + | Race | Unknown | + + + | Ethnic Group | Unknown | + + + Author + + + | Author | [facility] | | | and [place] | + + + | Organization | [facility] | | | and [place] | + + + | Address | Unknown | + + + | Phone | Unavailable | + + + Support + + + + + | Name | Relationship | Address | Phone | + + + + + | Miriam Dealmes | ECON | [address] | | | | | [place] [address] | | + + + + + | Fabio Haynes | ECON | [address] | | | | | [place] [address] | | + + + + + Care Team Providers + +------+ + | Care Sr. Merchandise Planner Name | Role | Phone | + +------+ + | Delores Gunn MD | PCP | | + +------+ + Reason for Visit + + + | Reason | Comments | + + + | Flank Pain | | + + + Encounter Details +--------+ + + + + | Date | Type | Department | Care Team | Description | +--------+ + + + + | 01/17/ | Emergency | [facility] | Alexx Covington | Ureteral colic | | 2016 | | [facility] | MD [address] | (Primary Dx) | | | | CENTER [address] | [facility] | | | | | [place], [place] | [place] [address] | | | | | [address] | [phone] | | | | | [phone] | | | +--------+ + + + [...] + + + | Blood Pressure | 128/83 | 01/17/2017 8:28 AM | | | | | PDT | | + + + + + | Pulse | 99 | 01/17/2017 11:11 AM | | | | | PDT | | + + + + + | Temperature | 36.8 C (98.3 F) | 01/17/2017 8:24 AM | | | | | PDT | | + + + + + | Respiratory Rate | 16 | 01/17/2017 8:24 AM | | | | | PDT | | + + + + + | Oxygen Saturation | 95% | 01/17/2017 11:25 AM | | | | | PDT | | + + + + + | Inhaled Oxygen | - | - | | | Concentration | | | | + + + + + | Weight | 63.5 kg (140 lb) | 01/17/2017 8:24 AM | | | | | PDT | | + + + + + | Height | 170.2 cm (5' 7") | 01/17/2017 8:24 AM | | | | | PDT | | + + + + + | Body Mass Index | 21.93 | 01/17/2017 8:24 AM | | | | | PDT | | + + + + + documented in this encounter Discharge Instructions Instructions Alexx Covington MD - 01/17/2017Take hydrocodone as needed for the pain Take Zofran if needed for the nausea Return here if the pain is not manageable or you start developing infection symptoms such a s fever documented in this encounter Medications at Time of Discharge + + + +---------+ + + | Medication | Sig | Dispensed | Refills | Start | End Date | | | | | | Date | | + + + +---------+ + + | acetaminophen | Take 1,000 mg by | | 0 | | | | (TYLENOL) 500 mg | mouth every 6 hours | | | | 7 | | tablet | as needed for Pain. | | | | | + + + +---------+ + + | | Take 1-2 tablets by | 20 | 0 | 01/18/20 | | | HYDROcodone-acetamin | mouth every 4 hours | tablet | | 17 | 7 | | ophen (NORCO) 5-325 | as needed for Pain. | | | | | | mg per tablet | | | | | | + + + +---------+ + + | ondansetron | Take 1 tablet by | 20 | 0 | 01/18/20 | | | (ZOFRAN ODT) 8 mg | mouth every 8 hours | tablet | | 17 | 7 | | disintegrating | as needed for Nausea | | | | | | tablet | for up to 7 days. | | | | | + + + +---------+ + + documented as of this encounter Plan of Treatment Not on filedocumented as of this encounter Procedures + +--------+ + + + | Procedure Name | Priori | Date/Time | Associated Diagnosis | Comments | | | ty | | | | + +--------+ + + + | US RENAL LIMITED | STAT | 01/17/2017 | | Results for this | | | | 11:00 AM | | procedure are in the | | | | PDT | | results section. | + +--------+ + + + | EXTRA GREEN TOP TUBE | Routin | 01/17/2017 | | Results for this | | | e | 8:50 AM | | procedure are in the | | | | PDT | | results section. | + +--------+ + + + | RAINBOW BLOOD PANEL | STAT | 01/17/2017 | | Results for this | | | | 8:49 AM | | procedure are in the | | | | PDT | | results section. | + +--------+ + + + | EXTRA LAVENDER TOP | STAT | 01/17/2017 | | Results for this | | TUBE | | 8:49 AM | | procedure are in the | | | | PDT | | results section. | + +--------+ + + + | EXTRA GREEN TOP TUBE | STAT | 01/17/2017 | | Results for this | | | | 8:49 AM | | procedure are in the | | | | PDT | | results section. | + +--------+ + + + | EXTRA BLUE TOP TUBE | STAT | 01/17/2017 | | | | | | 8:49 AM | | | | | | PDT | | | + +--------+ + + + | POCT URINALYSIS, | STAT | 01/17/2017 | | Results for this | | AUTO WITH CONF | | 8:42 AM | | procedure are in the | | | | PDT | | results section. | + +--------+ + + + documented in this encounter Results US Renal Limited (01/17/2017 11:00 AM PDT) + + | Specimen | + + | | + + + + + | Narrative | Performed At | + + + | US RENAL LIMITED 01/17/2017 10:30 AM HISTORY: FLANK PAIN. | [facility] | | COMPARISON: None. PROTOCOL: Johnson scale and Doppler images of the | | | kidneys and bladder. FINDINGS: Right Kidney: Mild right mid and | | | upper pole renal caliectasis. No definite evidence of calculus. Size | | | of the kidney is 11.0 x 5.1 x 4.7 cm. Left Kidney: The kidney is | | | smooth in contour and normal in echotexture without stone or | | | hydronephrosis. Size of the kidney is 10.9 x 5.6 x by 4.3 cm. | | | Bladder: The right ureteral jet was not visualized. The right ureteral | | | orifice appears asymmetrically larger than the left. A small amount | | | of hyperdensity is seen at the right UVJ. IMPRESSION - Mild | | | right mid/upper pole renal caliectasis, absence of the left ureteral | | | jets, and a small amount of ill-defined hyperdensity seen at the | | | right UVJ suggest partially obstructive distal ureteral calculus. | | | Right ureteral orifice appearing slightly larger than the left may be | | | related to prior deflux procedure with other soft tissue etiologies | | | not entirely excluded. Noncontrast renal stone protocol CT or CT | | | urogram is offered for additional evaluation. Dictated and Signed | | | by: Pancho Kingsley MD Electronically signed: 01/17/2017 12:49 PM | | | | | + + + + + | Procedure Note | + + | Lupillo, Rad Results In - 01/17/2017 12:52 PM PDT US RENAL LIMITED 01/17/2017 10:30 AM | | | | HISTORY: FLANK PAIN. | | | | COMPARISON: None. | | | | PROTOCOL: Johnson scale and Doppler images of the kidneys and bladder. | | | | FINDINGS: | | Right Kidney: Mild right mid and upper pole renal caliectasis. No definite | | evidence of calculus. Size of the kidney is 11.0 x 5.1 x 4.7 cm. | | | | Left Kidney: The kidney is smooth in contour and normal in echotexture without | | stone or hydronephrosis. Size of the kidney is 10.9 x 5.6 x by 4.3 cm. | | | | Bladder: The right ureteral jet was not visualized. The right ureteral orifice | | appears asymmetrically larger than the left. A small amount of hyperdensity is | | seen at the right UVJ. | | | | IMPRESSION - | | Mild right mid/upper pole renal caliectasis, absence of the left ureteral jets, | | and a small amount of ill-defined hyperdensity seen at the right UVJ suggest | | partially obstructive distal ureteral calculus. | | | | Right ureteral orifice appearing slightly larger than the left may be related to | | prior deflux procedure with other soft tissue etiologies not entirely excluded. | | Noncontrast renal stone protocol CT or CT urogram is offered for additional | | evaluation. | | | | Dictated and Signed by: Pancho Kingsley MD | | Electronically signed: 01/17/2017 12:49 PM | + + + +---------+ + + | Performing | Address | City/State/Zipcode | Phone Number | | Organization | | | | + +---------+ + + | [facility] | | | | + +---------+ + + Extra Green Top Tube (01/17/2017 8:50 AM PDT) + +-------+ + + + | Component | Value | Ref Range | Performed | Pathologist | | | | | At | Signature | + +-------+ + + + | Extra Green | Done | | [facility] | | | Top Tube | | | [facility] | | [...] + + | [facility] | [address] | [place] | [phone] | | [facility] | | [address] | | | - LABORATORY | | | | + + + + + Extra Lavender Top Tube (01/17/2017 8:49 AM PDT) + +-------+ + + + | Component | Value | Ref Range | Performed | Pathologist | | | | | At | Signature | + +-------+ + + + | Extra | Done | | [facility] | | | Lavender | | | [facility] | | | Top Tube | | | MEDICAL | | | [...] + | [facility] | [address] | [place] | [phone] | | [facility] | | [address] | | | - LABORATORY | | | | + + + + + Extra Green Top Tube (01/17/2017 8:49 AM PDT) + +-------+ + + + | Component | Value | Ref Range | Performed | Pathologist | | | | | At | Signature | + +-------+ + + + | Extra Green | Done | | [facility] | | | Top Tube | | | [facility] | | [...] [address] | [place] | [phone] | | [facility] | | [address] | | | - LABORATORY | | | | + + + + + Extra Blue Top Tube (01/17/2017 8:49 AM PDT) + +-------+ + + + | Component | Value | Ref Range | Performed | Pathologist | | | | | At | Signature | + +-------+ + + + | Extra Blue | | | [facility] | | | Top Tube | | | [facility] | | | | | | MEDICAL [...] + + | [facility] | [address] | [place] | [phone] | | [facility] | | [address] | | | - LABORATORY | | | | + + + + + POCT Urinalysis Dipstick Automated (01/17/2017 8:42 AM PDT) + + + + + + | Component | Value | Ref Range | Performed | Pathologist | | | | | At | Signature | + + + + + + | Color, UA, | Nellie (A) | Yellow, Light | | | | POC | | Yellow | | | + + + + + + | Clarity, | Turbid | | | | | UA, POC [...] + + | Ketones, | Negative | Negative, 100 | | | | UA, POC | | mg/dL | | | + + + + + + | Specific | 1.020 | 1.001 - 1.030 | | | | [place], | | | | | | UA, POC | | | | | + + + + + + | Blood, UA, | 2+ (A) | Negative | | | | POC | | | | | + + + + + + | pH, UA, POC | 6.0 | 5.0, 6.0, 7.0, | | | | | | 8.0, 5.5, 6.5, | | | | | | 7.5 | | | + + + + + + | Protein, | 1+ (A) | Negative | | | | UA, POC | | | | | + + + + + + | Urobilinoge | 1.0 E.U./dL | 0.2, Negative, | | | | [...] + | Diagnosis | + + | Ureteral colic - Primary Renal colic | + + documented in this encounter Administered Medications + +--------+ +---------+------+------+ | Medication Order | MAR | Action | Dose | Rate | Site | | | Action | Date | | | | + +--------+ +---------+------+------+ | fentaNYL (PF) injection 100 mcg | Given | 01/18/20 | 100 mcg | | | | 100 mcg, Intravenous, ONCE, Tue | | 17 10:14 | | | | | 01/17/17 at 1015, For 1 dose | | AM PDT | | | | + +--------+ +---------+------+------+ +---+---+ | | | +---+---+ + +-------+ +---------+---+---+ | fentaNYL (PF) injection 100 mcg | Given | 01/18/20 | 100 mcg | | | | 100 mcg, Intravenous, ONCE, Tue | | 17 11:00 | | | | | 01/17/17 at 1100, For 1 dose | | AM PDT | | | | + +-------+ +---------+---+---+ +---+---+ | | | +---+---+ + +-------+ +--------+---+---+ | HYDROmorphone (DILAUDID) 1 | Given | 01/18/20 | 0.5 mg | | | | mg/mL injection 0.5 mg 0.5 mg, | | 17 10:31 | | | | | Intravenous, EVERY 15 MIN PRN, | | AM PDT | | | | | Pain, Starting 01/17/17 at | | | | | | | 0905, For 5 doses | | | | | | + +-------+ +--------+---+---+ +-------+ +--------+---+---+ | Given | 01/18/20 | 0.5 mg | | | | | 17 10:09 | | | | | | AM PDT | | | | +-------+ +--------+---+---+ | Given | 01/18/20 | 0.5 mg | | | | | 17 9:54 | | | | | | AM PDT | | | | +-------+ +--------+---+---+ +---+---+ | | | +---+---+ + +-------+ +------+---+---+ | HYDROmorphone (DILAUDID) 1 | Given | 01/18/20 | 1 mg | | | | mg/mL injection 1 mg 1 mg, | | 17 9:22 | | | | | Intravenous, ONCE, 01/17/17 at | | AM PDT | | | | | 0905, For 1 dose | | | | | | + +-------+ +------+---+---+ +---+---+ | | | +---+---+ + +-------+ +------+---+---+ | ondansetron (ZOFRAN) injection | Given | 01/18/20 | 4 mg | | | | 4 mg 4 mg, Intravenous, ONCE, | | 17 9:23 | | | | | 01/17/17 at 0905, For 1 dose | | AM PDT | | | | + +-------+ +------+---+---+ +---+---+ | | | +---+---+ + + + +---------+-------+---+ | sodium chloride 0.9% (NS) | Restarte | 01/18/20 | 500 mLs | 100 | | | infusion at 100 mL/hr, | d | 17 10:56 | | mL/hr | | | Intravenous, CONTINUOUS, Starting | | AM PDT | | | | | 01/17/17 at 0905 | | | | | | + + + +---------+-------+---+ +---------+ +---+-------+---+ | New Bag | 01/18/20 | | 100 | | | | 17 9:25 | | mL/hr | | | | AM PDT | | | | +---------+ +---+-------+---+ +---+---+ | | | +---+---+ documented in this encounter
--- OUTSIDE RECORDS SUMMARY | ~2020-02-02 | XMS | Encounter Summary ---
Demographics + + + | Address | [address] | | | [place] [address] | + + + | Home Phone | | + + + | Preferred Language | Unknown | + + + | Marital Status | Single | + + + | Yazidi Affiliation | Unknown | + + + | Race | Unknown | + + + | Ethnic Group | Unknown | + + + Author + + + | Author | [facility] | | | and [place] | + + + | Organization | [facility] | | | and [place] | + + + | Address | Unknown | + + + | Phone | Unavailable | + + + Support + + + + + | Name | Relationship | Address | Phone | + + + + + | Miriam Dealmes | ECON | [address] | | | | | [place] [address] | | + + + + + | Fabio Haynes | ECON | [address] | | | | | [place] [address] | | + + + + + Care Team Providers + +------+ + | Care Christmas Tree Contractor Name | Role | Phone | + [...] | +--------+ + + + + | 02/04/ | Emergency | [facility] | Arvind Padilla MD | Renal colic on right | | 2017 | | [facility] | [address] | side (Primary Dx) | | | | CENTER [address] | [place] | | | | | [place] | [address] | | | | | [address] | | | | | | [phone] | | | +--------+ + + + [...] + + + | Blood Pressure | 111/79 | 02/04/2017 12:27 PM | | | | | PDT | | + + + + + | Pulse | 80 | 02/04/2017 12:27 PM | | | | | PDT | | + + + + + | Temperature | 36.4 C (97.6 F) | 02/04/2017 10:04 AM | | | | | PDT | | + + + + + | Respiratory Rate | 16 | 02/04/2017 10:04 AM | | | | | PDT | | + + + + + | Oxygen Saturation | 97% | 02/04/2017 12:27 PM | | | | | PDT | | + + + + + | Inhaled Oxygen | - | - | | | Concentration | | | | + + + + + | Weight | 63.5 kg (140 lb) | 02/04/2017 10:04 AM | | | | | PDT | | + + + + + | Height | 170.2 cm (5' 7") | 02/04/2017 10:04 AM | | | | | PDT | | + + + + + | Body Mass Index | 21.93 | 02/04/2017 10:04 AM | | | | | PDT | | + + + + + documented in this encounter Discharge Instructions Instructions Arvind Padilla MD - 02/04/2017Pain and nausea medication as needed Rest and fluids Return for uncontrolled pain, uncontrolled vomiting, not improving, other new complaints documented in this encounter Medications at Time of Discharge + + + +---------+ + + | Medication | Sig | Dispensed | Refills | Start | End Date | | | | | | Date | | + + + +---------+ + + | | Take 1-2 tablets by | 20 | 0 | 02/05/20 | | | HYDROcodone-acetamin | mouth every 6 hours | tablet | | 17 | 7 | | ophen (NORCO) 5-325 | as needed for Pain. | | | | | | mg per tablet | | | | | | + + + +---------+ + + | ondansetron | Take 1 tablet by | 10 | 0 | 02/05/20 | | | (ZOFRAN ODT) 4 mg | mouth every 8 hours | tablet | | 17 | 7 | | disintegrating | as needed for | | | | | | tablet | Nausea. | | | | | + + [...] CT RENAL STONE WO | STAT | 02/04/2017 | | Results for this | | CONTRAST | | 11:44 AM | | procedure are in the | | | | PDT | | results section. | + +--------+ + + + | POCT URINALYSIS, | STAT | 02/04/2017 | | Results for this | | AUTO WITH CONF | | 10:09 AM | | procedure are in the | | | | PDT | | results section. | + +--------+ + + + documented in this encounter Results CT Renal Stone Wo Contrast (02/04/2017 11:44 AM PDT) + + | Specimen | + + | | + + + + + | Narrative | Performed At | + + + | CT ABDOMEN AND PELVIS WITHOUT CONTRAST (CPT) CT KUB | [facility] | | CLINICAL INFORMATION: Right flank pain. COMPARISON: CT ABDOMEN | | | PELVIS WITHOUT CONTRAST dated 01/17/2015 PROCEDURE: Axial images | | | through the abdomen and pelvis. Multiplanar reconstructions. At | | | least one of the following CT dose optimization techniques were used: | | | Automated exposure control; Adjustment of mA and/or kV according to | | | patient size; Use of iterative reconstruction technique. FINDINGS: | | | KIDNEYS, URETERS and BLADDER: 2 calculi at the right UPJ, the larger | | | and more distal stone measuring 4 mm, the proximal stone measuring 2 | | | mm, resulting in minimal right hydronephrosis. No left renal | | | calculi or hydronephrosis. Urinary bladder is unremarkable. | | | LUNG BASES: No significant pulmonary abnormality. No pleural effusion | | | or pneumothorax. ABDOMEN Liver and Biliary: Visualized liver | | | is unremarkable. No gallbladder abnormality. Pancreas, Spleen and | | | Adrenals: Visualized spleen is unremarkable. Pancreas and adrenals | | | are normal in size without obvious noncontrast abnormality. | | | ABDOMEN AND PELVIS Bowel: No small bowel or colonic dilation or | | | adjacent inflammation. No appendiceal dilation or inflammation. | | | Vessels: Normal in caliber without significant non contrast | | | abnormality. Lymph Nodes: No adenopathy. Peritoneum and | | | Retroperitoneum: No ascites or free air. No significant | | | retroperitoneal abnormality. PELVIS Genitourinary: No pelvic mass | | | and no significant urethral abnormality. BODY WALL Soft Tissues: | | | No bowel or inflamed fat containing hernia, mass or hemorrhage. | | | Bones: No acute fracture or vertebral end plate destruction. No lytic | | | or blastic lesion. IMPRESSION- Minimal right hydronephrosis | | | secondary to 2 calculi at the right UVJ measuring 4 mm and 2 mm. | | | A preliminary report was sent by [employer] with no significant | | | discrepancy. Dictated and Signed by: Pancho Kingsley MD | | | Electronically signed: 02/04/2017 2:33 PM | | + + + + + | Procedure Note | + + | Lupillo, Rad Results In - 02/04/2017 2:36 PM PDT | | CT ABDOMEN AND PELVIS WITHOUT CONTRAST (CPT) | | | | CT KUB | | | | CLINICAL INFORMATION: | | Right flank pain. | | | | COMPARISON: | | CT ABDOMEN PELVIS WITHOUT CONTRAST dated 01/17/2015 | | | | PROCEDURE: | | Axial images through the abdomen and pelvis. Multiplanar | | reconstructions. | | | | At least one of the following CT dose optimization techniques were | | used: Automated exposure control; Adjustment of mA and/or kV according | | to patient size; Use of iterative reconstruction technique. | | | | FINDINGS: | | KIDNEYS, URETERS and BLADDER: 2 calculi at the right UPJ, the larger | | and more distal stone measuring 4 mm, the proximal stone measuring 2 | | mm, resulting in minimal right hydronephrosis. No left renal calculi | | or hydronephrosis. Urinary bladder is unremarkable. | | | | LUNG BASES: No significant pulmonary abnormality. No pleural effusion | | or pneumothorax. | | | | ABDOMEN | | Liver and Biliary: Visualized liver is unremarkable. No gallbladder | | abnormality. | | Pancreas, Spleen and Adrenals: Visualized spleen is unremarkable. | | Pancreas and adrenals are normal in size without obvious noncontrast | | abnormality. | | | | ABDOMEN AND PELVIS | | Bowel: No small bowel or colonic dilation or adjacent inflammation. No | | appendiceal dilation or inflammation. | | Vessels: Normal in caliber without significant non contrast abnormality. | | Lymph Nodes: No adenopathy. | | Peritoneum and Retroperitoneum: No ascites or free air. No significant | | retroperitoneal abnormality. | | | | PELVIS | | Genitourinary: No pelvic mass and no significant urethral abnormality. | | | | BODY WALL | | Soft Tissues: No bowel or inflamed fat containing hernia, mass or | | hemorrhage. | | Bones: No acute fracture or vertebral end plate destruction. No lytic | | or blastic lesion. | | | | IMPRESSION- | | Minimal right hydronephrosis secondary to 2 calculi at the right UVJ | | measuring 4 mm and 2 mm. | | | | A preliminary report was sent by [employer] with no significant | | discrepancy. | | | | Dictated and Signed by: Pancho Kingsley MD | | Electronically signed: 02/04/2017 2:33 PM | + + + +---------+ + + | Performing | Address | City/State/Zipcode | Phone Number | | Organization | | | | + +---------+ + + | [facility] | | | | + +---------+ + + POCT Urinalysis Dipstick Automated (02/04/2017 10:09 AM PDT) + + + + + + | Component | Value | Ref Range | Performed | Pathologist | | | | | At | Signature | + + + + + + | Color, UA, | Nellie (A) | Yellow, Light | | | | POC | | Yellow | | | + + + + + + | Clarity, | Cloudy | | | | | UA, POC [...] + + + + | Specific | 1.030 | 1.001 - 1.030 | | | | [place], | | | | | | UA, POC | | | | | + + + + + + | Blood, UA, | 3+ (A) | Negative | | | | POC | | | | | + + + + + + | pH, UA, POC | 7.0 | 5.0, 6.0, 7.0, | | | | | | 8.0, 5.5, 6.5, | | | | | | 7.5 | | | + + + + + + | Protein, | 2+ (A) | Negative | | [...] | + +--------+ +--------+------+------+ | HYDROmorphone (DILAUDID) | Given | 02/05/20 | 0.5 mg | | | | injection 0.5 mg 0.5 mg, | | 17 10:36 | | | | | Intravenous, ONCE, 02/04/17 at | | AM PDT | | | | | 1035, For 1 dose | | | | | | + +--------+ +--------+------+------+ +---+---+ | | | +---+---+ + +-------+ +------+---+---+ | HYDROmorphone (DILAUDID) | Given | 02/05/20 | 1 mg | | | | injection 1 mg 1 mg, | | 17 11:07 | | | | | Intravenous, ONCE, 02/04/17 at | | AM PDT | | | | | 1105, For 1 dose | | | | | | + +-------+ +------+---+---+ +---+---+ | | | +---+---+ + +-------+ +------+---+---+ | morphine injection 4 mg 4 mg, | Given | 02/05/20 | 4 mg | | | | Intravenous, ONCE, 02/04/17 at | | 17 11:34 | | | | | 1135, For 1 dose | | AM PDT | | | | + +-------+ +------+---+---+ +---+---+ | | | +---+---+ + +-------+ +------+---+---+ | ondansetron (ZOFRAN) injection | Given | 02/05/20 | 4 mg | | | | 4 mg 4 mg, Intravenous, ONCE, | | 17 10:36 | | | | | 02/04/17 at 1035, For 1 dose | | AM PDT | | | | + +-------+ +------+---+---+ +---+---+ | | | +---+---+ + +---------+ +--------+-------+---+ | sodium chloride 0.9% (NS) bolus | New Bag | 02/05/20 | 1,000 | 1000 | | | 1,000 mL 1,000 mL, Intravenous, | | 17 10:37 | mLs | mL/hr | | | Administer over 1 Hours, ONCE, | | AM PDT | | | | | 02/04/17 at 1035, For 1 dose | | | | | | + +---------+ +--------+-------+---+ +---+---+ | | | +---+---+ documented in this encounter
--- OUTSIDE RECORDS SUMMARY | ~2020-02-02 | XMS | Encounter Summary ---
Demographics + + + | Address | [address] | | | [place] [address] | + + + | Home Phone | | + + + | Preferred Language | Unknown | + + + | Marital Status | Single | + + + | Faith Affiliation | Unknown | + + + | Race | Unknown | + + + | Ethnic Group | Unknown | + + + Author + + + | Author | [facility] | | | and [place] | + + + | Organization | [facility] | | | and [place] | + + + | Address | Unknown | + + + | Phone | Unavailable | + + + Support + + + + + | Name | Relationship | Address | Phone | + + + + + | Miriam Dealmes | ECON | [address] | | | | | [place] [address] | | + + + + + | Fabio Haynes | ECON | [address] | | | | | [place] [address] | | + + + + + Care Team Providers + +------+ + | Care Cnc Machinist 2Nd Shift Name | Role | Phone | + +------+ + | No, Physician | PCP | Unavailable | + +------+ + Encounter Details +--------+ + + + + | Date | Type | Department | Care Team | Description | +--------+ + + + + | 09/25/ | Hospital | [facility] | Kevin Edison | | | 2012 - | Encounter | [facility] | J, DO [address] | | | | | [address] | [place], [place] | | | 09/27/ | | [place] [address] | [address] | | | 2012 | | [phone] | [phone] | | | | | | | [...]
--- OUTSIDE RECORDS SUMMARY | ~2020-02-02 | XMS | Clinical Summary ---
Demographics + + + | Address | [address] | | | [place] [address] | + + + | Home Phone | | + + + | Preferred Language | Unknown | + + + | Marital Status | Single | + + + | Buddhism Affiliation | Unknown | + + + | Race | Unknown | + + + | Ethnic Group | Unknown | + + + Author + + + | Author | [facility] | | | and [place] | + + + | Organization | [facility] | | | and [place] | + + + | Address | Unknown | + + + | Phone | Unavailable | + + + Support + + + + + | Name | Relationship | Address | Phone | + + + + + | Miriam Dealmes | ECON | [address] | | | | | [place] [address] | | + + + + + | Fabio Haynes | ECON | [address] | | | | | [place] [address] | | + + + + + Care Team Providers + +------+ + | Care Community Recreation Coordinator Name | Role | Phone | + +------+ + | Delores Gunn MD | PCP | | + +------+ + Allergies + + [...] every 6 hours | tablet | | 1/20 | | e | | ophen (NORCO) [...] + + + + | Name | Administration Dates | Next Due | + + + [...] | | + + + + + Plan of Treatment + + + + + | Health Maintenance | Due Date | Last Done | Comments | + + + + + | Vaccine: Influenza | | | | | (Season Ended) | 0 | | | + + + + + | Vaccine: | | 09/28/2015, 09/03/2012 | | | Dtap/Tdap/Td (3 - | 6 | | | | Td) | | | | + + + + + Results Not on filefrom Last 3 Months Advance Directives + + + + + | Type | Date Recorded | Patient | Explanation | | | | Bike Designer | | + + + + + | Power of | | | | | Staffing Executive | | | | + + + + + | Advance | 01/26/2017 8:14 | | | | Directive | PM | | | + + + + +
--- OUTSIDE RECORDS SUMMARY | ~2020-02-02 | XMS | Encounter Summary ---
Demographics + + + | Address | [address] | | | [place] [address] | + + + | Home Phone | | + + + | Preferred Language | Unknown | + + + | Marital Status | Single | + + + | Anglican Affiliation | Unknown | + + + | Race | Unknown | + + + | Ethnic Group | Unknown | + + + Author + + + | Author | [facility] | | | and [place] | + + + | Organization | [facility] | | | and [place] | + + + | Address | Unknown | + + + | Phone | Unavailable | + + + Support + + + + + | Name | Relationship | Address | Phone | + + + + + | Miriam Dealmes | ECON | [address] | | | | | [place] [address] | | + + + + + | Fabio Haynes | ECON | [address] | | | | | [place] [address] | | + + + + + Care Team Providers + +------+ + | Care Desktop Analyst Name | Role | Phone | + [...] + + | 01/17/ | Emergency | [facility] | Alexx [place] | Ureteral colic | | 2016 | | [facility] | MD Brennan [address] | (Primary Dx) | | | | CENTER [address] | [facility] | | | | | [place], [place] | [place] [address] | | | | | [address] | [phone] | | | | | [phone] | | | +--------+ + + + [...] [address] | [place] | [phone] | | [facility] | | [address] | | | - LABORATORY | | [...] + | [facility] | [address] | Mad[place] | [phone] | | [facility] | | [address] | | | - LABORATORY | | [...] [address] | [place] | [phone] | | [facility] | | [address] | | | - LABORATORY | | [...] | [employer] | | | [facility] | | | | | | MEDICAL [...] [address] | [place] | [phone] | | [facility] | | [address] | | | - LABORATORY | | [...] 1.001 - 1.030 | | | | [place], | | | | | | [place], [...]
--- OUTSIDE RECORDS SUMMARY | ~2020-02-02 | XMS | Clinical Summary ---
Demographics + + + | Address | [address] | | | [place] [address] | + + + | Home Phone | | + + + | Preferred Language | Unknown | + + + | Marital Status | Single | + + + | Muslim Affiliation | Unknown | + + + | Race | Unknown | + + + | Ethnic Group | Unknown | + + + Author + + + | Author | [facility] | | | and [place] | + + + | Organization | [facility] | | | and [place] | + + + | Address | Unknown | + + + | Phone | Unavailable | + + + Support + + + + + | Name | Relationship | Address | Phone | + + + + + | Miriam Dealmes | ECON | [address] | | | | | [place] [address] | | + + + + + | Fabio Haynes | ECON | [address] | | | | | [place] [address] | | + + + + + Care Team Providers + +------+ + | Care Engraver Jewelry Name | Role | Phone | + [...] Patient | Explanation | | | | Hotel Guest Service Agent | | + + + + + | Power of | | | | | Material Inspector | | | | + + + + + | Advance | 01/26/2017 8:14 | | | | Directive | PM | | | + + + + +
--- OUTSIDE RECORDS SUMMARY | ~2020-02-02 | XMS | Encounter Summary ---
Demographics + + + | Address | [address] | | | [place] [address] | + + + | Home Phone | | + + + | Preferred Language | Unknown | + + + | Marital Status | Single | + + + | Mormon Affiliation | Unknown | + + + | Race | Unknown | + + + | Ethnic Group | Unknown | + + + Author + + + | Author | [facility] | | | and [place] | + + + | Organization | [facility] | | | and [place] | + + + | Address | Unknown | + + + | Phone | Unavailable | + + + Support + + + + + | Name | Relationship | Address | Phone | + + + + + | Miriam Dealmes | ECON | [address] | | | | | [place] [address] | | + + + + + | Fabio Haynes | ECON | [address] | | | | | [place] [address] | | + + + + + Care Team Providers + +------+ + | Care Director Gift Name | Role | Phone | + [...] + + | 01/26/ | Emergency | [facility] | Alexx [place] | Left lower quadrant | | 2017 | | MED CTR EMER[facility] | MD [address] | pain (Primary Dx) | | | | CENTER [address] | [facility] | | | | | [place] | [place] [address] | | | | | [address] | [phone] | | | | | [phone] | | | +--------+ + + + [...] [address] | [place] | [phone] | | [facility] | | [address] | | | - LABORATORY | | [...] | mL/min/1.73m2 | MAEVE | | | KOS[place]AN | RATE,ESTIMATED | | MEDICAL | | | | mL/min/1.68m0Rvyu than | | CENTER - | | [...] + | [facility] | [address] | [place] | [phone] | | [facility] | | [address] | | | - LABORATORY | | [...] + | [facility] | [address] | [place] | [phone] | | [facility] | | [address] | | | - LABORATORY | | [...] 1.001 - 1.030 | | | | [place], | | | | | | [place], [...] PDT | | | | | ONCE, [facility] 01/26/17 at 1835, For 1 | | | | | | | dose | | | | | | + +---------+ +--------+-------+---+ +---+---+ | | | +---+---+ documented in this encounter
--- OUTSIDE RECORDS SUMMARY | ~2020-02-02 | XMS | Encounter Summary ---
Demographics + + + | Address | [address] | | | [place] [address] | + + + | Home Phone | | + + + | Preferred Language | Unknown | + + + | Marital Status | Single | + + + | Rastafarian Affiliation | Unknown | + + + | Race | Unknown | + + + | Ethnic Group | Unknown | + + + Author + + + | Author | [facility] | | | and [place] | + + + | Organization | [facility] | | | and [place] | + + + | Address | Unknown | + + + | Phone | Unavailable | + + + Support + + + + + | Name | Relationship | Address | Phone | + + + + + | Miriam Dealmes | ECON | [address] | | | | | [place] [address] | | + + + + + | Fabio Haynes | ECON | [address] | | | | | [place] [address] | | + + + + + Care Team Providers + +------+ + | Care Modeling Instructor Name | Role | Phone | + +------+ + | No, Physician | PCP | Unavailable | + +------+ + Reason for Visit + + + | Reason | Comments | + + + | Laceration | Left thumb today. Procedure Rm 1 | + + + Encounter Details +--------+---------+ + + + | Date | Type | Department | Care Team | Description | +--------+---------+ + + + | 09/03/ | Office | [facility] | Noman Mota, | Laceration of thumb, | | 2012 | Visit | [facility] | [address] | left (Primary Dx); | | | | [facility] | [place] | Laceration of hand | | | | [place] | [address] | involving extensor | | | | [address] | | tendon | | | | [phone] | | | +--------+---------+ + + + Social History + + [...] + + + | Blood Pressure | 90/70 | 09/03/2012 11:16 AM | | | | | PST | | + + + + + | Pulse | 100 | 09/03/2012 11:16 AM | | | | | PST | | + + + + + | Temperature | 37.3 C (99.2 F) | 09/03/2012 11:16 AM | | | | | PST | | + + + + + | Respiratory Rate | 16 | 09/03/2012 11:16 AM | | | | | PST | | + + + + + | Oxygen Saturation | 98% | 09/03/2012 11:16 AM | | | | | PST | | + + + + + | Inhaled Oxygen | - | - | | | Concentration | | | | + + + + + | Weight | 63.5 kg (140 lb) | 09/03/2012 11:16 AM | | | | | PST | | + + + + + | Height | 171.5 cm (5' 7.5") | 09/03/2012 11:16 AM | | | | | PST | | + + + + + | Body Mass Index | 21.6 | 09/03/2012 11:16 AM | | | | | PST | | + + + + + documented in this encounter Patient Instructions Patient Instructions Noman Mota MD - 09/03/2012 11:47 AM PSTKeep dressing and splint in place until you go see Dr Brown this afternoon at the [facility] to get your e xtensor tendon repaired. documented in this encounter Progress Notes Barbara Veronica RN - 09/03/2012 12:26 PM PSTTriple antibiotic ointment applied to suture si te. Bandaid placed. Thumb splint secured to volar surface of left thumb. Barbara Veronica dNoman carcamo MD - 09/03/2012 11:48 AM PST Subjective: Patient ID: Geronimo Allan is a 22 y.o. male. HPI Patient's medications, allergies, past medical, surgical, social and family histories were reviewed and updated as appropriate. 6 this patient came to the clinic because of a laceration on his left arm but he got just t his morning. He was cutting some wire and slipped with a knife cutting across the dorsum of the proximal phalanx of his left thumb he cannot fully extend the thumb. It is not numb in the end. Doesn't know when his last tetanus shot was. He has no other complaint. He is a generally healthy young man. Review of Systems All other systems reviewed and are negative. Objective: Physical Exam Constitutional: He appears well-developed and well-nourished. HENT: Head: Normocephalic. Eyes: Pupils are equal, round, and reactive to light. Cardiovascular: Normal rate, regular rhythm and normal heart sounds. Pulmonary/Chest: Effort normal and breath sounds normal. Musculoskeletal: Left hand: He exhibits decreased range of motion (unable to fully extend the palm) and tenderness. He exhibits no bony tenderness. normal sensation noted. Hands: Assessment: 1. Laceration of thumb, left 2. Laceration of hand involving extensor tendon Plan: Please see the AVS for the plan unless outlined elsewhere. I explained the situation to the patient. I then phoned to the orthopedist material control associate, Dr Vicente mahajan, and talk with him. He said to loosely close the wound and splint the thumb in extensi on and dressed it. Then the patient is to go to the [facility] this afternoon to se e him. I used about 3 cc 1% plain lidocaine for local anesthetic before exploring the wound and th en later I put 2 simple a rapid 4-0 Ethilon stitches in to loosely close it as requested by Dr. Brown. I spent 40 min with exam, phone call to multi site leasing consultant, and repair, etc. documented in this encounter Plan of Treatment Not on filedocumented as of this encounter Visit Diagnoses + + | Diagnosis | + + | Laceration of thumb, left - Primary Open wound of finger(s) , without mention of | | complication | + + | Laceration of hand involving extensor tendon Open wound of hand except finger(s) | | alone, with tendon involvement | + + documented in this encounter
--- OUTSIDE RECORDS SUMMARY | ~2020-02-02 | XMS | Encounter Summary ---
Demographics + + + | Address | [address] | | | [place] [address] | + + + | Home Phone | | + + + | Preferred Language | Unknown | + + + | Marital Status | Single | + + + | Faith Affiliation | Unknown | + + + | Race | Unknown | + + + | Ethnic Group | Unknown | + + + Author + + + | Author | [facility] | | | and [place] | + + + | Organization | [facility] | | | and [place] | + + + | Address | Unknown | + + + | Phone | Unavailable | + + + Support + + + + + | Name | Relationship | Address | Phone | + + + + + | Miriam Dealmes | ECON | [address] | | | | | [place] [address] | | + + + + + | Fabio Haynes | ECON | [address] | | | | | [place] [address] | | + + + + + Care Team Providers + +------+ + | Care Federal Judicial Law Clerk Name | Role | Phone | + [...] + + | 02/04/ | Emergency | [facility] | Arvind Padilla MD | Renal colic on right | | 2017 | | MED CTR EMERGENCY | [address] | side (Primary Dx) | | | | CENTER [address] | [place] | | | | | [place] | [address] | | | | | [address] | | | | | | [phone] | | | +--------+ + + + [...] | A preliminary report was sent by [facility] with no significant | | | discrepancy. [...] | A preliminary report was sent by [facility] with no significant | | discrepancy. | [...] 1.001 - 1.030 | | | | [place], | | | | | | [place], [...]
--- OUTSIDE RECORDS SUMMARY | ~2020-02-02 | XMS | Encounter Summary ---
Demographics + + + | Address | [address] | | | [place] [address] | + + + | Home Phone | | + + + | Preferred Language | Unknown | + + + | Marital Status | Single | + + + | Buddhist Affiliation | Unknown | + + + | Race | Unknown | + + + | Ethnic Group | Unknown | + + + Author + + + | Author | [facility] | | | and [place] | + + + | Organization | [facility] | | | and [place] | + + + | Address | Unknown | + + + | Phone | Unavailable | + + + Support + + + + + | Name | Relationship | Address | Phone | + + + + + | Miriam Dealmes | ECON | [address] | | | | | [place] [address] | | + + + + + | Fabio Haynes | ECON | [address] | | | | | [place] [address] | | + + + + + Care Team Providers + +------+ + | Care Mba Intern Name | Role | Phone | + [...] + + | 09/03/ | Office | [facility] | Noman Mota, | Laceration of thumb, | | 2012 | Visit | [facility] | [address] | left (Primary Dx); | | | | [facility] | [place] | Laceration of hand | | | | [place] | [address] | involving extensor | | | | [address] | | tendon | | | | [phone] | | | +--------+---------+ + + + [...] see Dr Brown this afternoon at the [facility] to get your e xtensor [...] patient. I then phoned to the orthopedist collection advisor, Dr Vicente mahajan, and talk with him. He said to loosely close the wound and splint the thumb in extensi on and dressed it. Then the patient is to go to the [facility] this afternoon to se e him. I used about 3 cc 1% plain lidocaine for local anesthetic before exploring the wound and th en later I put 2 simple a rapid 4-0 Ethilon stitches in to loosely close it as requested by Dr. Brown. I spent 40 min with exam, phone call to child development consultant, and repair, etc. documented in this [...]
[~2020-02-02 16:19] MED LIST changes: +FLOMAX0.4 MG PO; +NORCO 5-325 TA1 EACH PO; +PROMETHAZINE HC25 M1 PO
[2020-02-02] MEDS ORDERED: PRILOSEC OTC20 MG PO (17:30)
== END 2020-02-02 17:40 | disposition home or self-care (01) ==
LOC: ED 16:19
DX: K21.9 Gastro-esophageal reflux disease without esophagitis (principal); F17.200 Nicotine dependence, unspecified, uncomplicated
CPT/HCPCS: 80053; 83690; 85025; 99284

== ENCOUNTER 2024-01-08 04:21 | Emergency (ER) | payer SELFPAY ==
[~2024-01-08] VITALS: Ht 170.2 cm; Wt 77.0 kg
[~2024-01-08 04:21] MED LIST changes: +PRILOSEC OTC20 MG PO
[2024-01-08] MEDS ORDERED: EPI DENTAL PRN (05:00)
[2024-01-08] MEDS ORDERED: AMOXICILLIN/CLAVULANATE K 875 MG HOME.PACK PO ONE (05:00)
[2024-01-08] MEDS ORDERED: BUPIVACAINE 0.5% DENTAL PRN (05:00)
[2024-01-08] MEDS ORDERED: AMOX TR-K CLV1 EAC1 PO (05:40)
[2024-01-08 05:46] VITALS: BP 124/89
== END 2024-01-08 05:45 | disposition home or self-care (01) ==
LOC: ED 04:21
DX: K04.7 Periapical abscess without sinus (principal); F17.200 Nicotine dependence, unspecified, uncomplicated; Z79.899 Other long term (current) drug therapy
CPT/HCPCS: 99283